=== PATIENT | female | born 1975 | race Caucasian/White ===

== ENCOUNTER → 2016-04-21 | Outpatient (CLI) | payer OTHER ==
--- NOTE | 2016-04-22 10:18 | MAM ---
EXAM DESCRIPTION: MAMMO BREAST SCREENING BILATERAL CAD, images were reviewed with CAD technology, R2 computer-aided detection. CLINICAL HISTORY: [facility]. COMPARISON: 2012. FINDINGS: Routine views are obtained. Scattered glandular pattern. No dominant mass, architectural distortion or clustered microcalcification. IMPRESSION: Benign exam. BIRAD CATEGORY: 2 BENIGN RECOMMENDATIONS: FOLLOW-UP: Routine screening mammogram in one year. According to the [employer], yearly mammograms are recommended starting at age 40 and continuing as long as a woman is in good health. Any breast change noted on a breast self-exam should be reported promptly to the patient's healthcare provider. Breast MRI is recommended for women with an approximately 20-25% or greater lifetime risk of breast cancer, including women with a strong family history of breast or ovarian cancer and women who have been treated for Hodgkin's disease. Electronically signed by: Key Chavira 04/22/2016 10:16
== END | disposition home or self-care (01) ==
LOC: MAMMO 14:50
PROVIDERS: ATTEND Family Medicine
DX: Z12.31 Encounter for screening mammogram for malignant neoplasm of breast (principal)

== ENCOUNTER → 2018-04-21 | Outpatient (CLI) | payer OTHER ==
--- NOTE | 2018-04-21 17:01 | US ---
US THYROID CLINICAL STATEMENT: E04.9. . Nonspecific thyroid goiter. No palpable mass. No history of prior thyroid surgery or therapy. COMPARISON: None FINDINGS: Size right thyroid lobe: 5.2 x 1.8 x 1.5 cm Size left thyroid lobe: 5.4 x 1.8 x 1.4 cm Size isthmus: 0.4 cm Estimated total number of nodules greater than or equal to 1 cm: None. No nodules or cysts in the thyroid lobes. Heterogeneous appearance. No abnormal vascularity or parenchymal edema. No distinct cyst or dominant solid mass in the surrounding soft tissues. No parenchymal edema or large calcifications. No overlying skin changes. Normal vascularity. IMPRESSION: 1. No nodules or cysts in the thyroid gland. 2. Surrounding soft tissues are unremarkable. *ACR TI-RADS 2017 Recommendations (for nodule follow-up): TR1: No FNA or follow up TR2: No FNA or follow up TR3: FNA if >/= 2.5 cm, follow up if 1.5 - 2.4 cm in 1, 3, and 5 years TR4: FNA if >/= 1.5 cm, follow up if 1.0 - 1.4 cm in 1, 2, 3, and 5 years TR5: FNA if >/= 1.0 cm, follow up if 0.5 - 0.9 cm every year for 5 years ACR TI-RADS recommends that no more than two nodules with the highest ACR TI-RADS total point should be biopsied and no more than four nodules should be followed. These recommendations do not apply to patients with increased risk for thyroid cancer or patients with symptomatic thyroid disease. Electronically signed by: Marquez Santana MD 04/21/2018 4:58 PM [facility] [employer]
== END ==
LOC: US 13:24
PROVIDERS: ATTEND Family Medicine
DX: E04.9 Nontoxic goiter, unspecified (principal)

== ENCOUNTER → 2018-11-12 | Outpatient (CLI) | payer OTHER | LOC: LAB.O 14:21 | PROVIDERS: ATTEND Nurse Practitioner Family | DX: F41.1 Generalized anxiety disorder (principal) ==

== ENCOUNTER → 2019-03-28 | Outpatient (CLI) | payer OTHER ==
--- NOTE | 2019-03-28 18:01 | MRI ---
EXAM DESCRIPTION: Lumbar Spine w/o Contrast CLINICAL HISTORY: LOW BACK PAIN COMPARISON: None Available. TECHNIQUE: MRI of the lumbar spine is performed according to our usual protocol with axial and sagittal multi sequence imaging. FINDINGS: Sagittal T2 images reveal decreased signal intensity consistent with desiccation of the intervertebral discs at levels L1-2, L4-5 and L5-S1. Posterior annular bulges are mildly prominent at these levels. No prevertebral mass or aneurysm. Lower cord and conus appear normal. Tip of the conus is behind L1. Sagittal T1 images reveal benign marrow signal characteristics. Scattered Schmorl's nodes. Few small vertebral hemangiomas. Normal T1 signal intensity and appearance of the lower cord and conus. Sagittal STIR images are positive for increased signal intensity around degenerative L5-S1 disc consistent with Modic type I changes. No paraspinous fluid collection or cystic lesion. Axial T1 and T2-weighted images were obtained to evaluate the disc levels. T12-L1: No posterior annular bulge or herniation. No spinal stenosis or neural foraminal narrowing. Moderate facet degenerative changes. Normal appearance of the lower cord and conus. L1-2: Mild diffuse posterior annular bulge without spinal stenosis or significant neural foraminal narrowing. Mild ligamentum flavum thickening with moderate narrowing of subarticular recesses. L2-3: No posterior annular bulge or herniation. No spinal stenosis. Mild bilateral neural foraminal narrowing with moderate narrowing of subarticular recess is crowding of the descending L3 nerve roots. Mild facet hypertrophic changes. L3-4: Mild diffuse posterior annular bulge with bilateral lateral accentuation. No spinal stenosis. Moderate bilateral neural foraminal narrowing. Facets appear hypertrophic with moderate narrowing of subarticular recess is crowding of the descending L4 nerve roots. L4-5: Moderate posterior annular bulge with right paracentral superimposed protrusion measuring 3 mm in AP dimension and 8 mm in mediolateral width. Moderate subarticular recess narrowing right more than left with impingement on the descending right L5 nerve root. Moderate facet degenerative changes are seen with [id number] bilateral neural foraminal narrowing. L5-S1: Mild diffuse posterior annular bulge with slight midline and right paracentral accentuation. Small posteriorly right parasagittal linear tear of the annulus measures 4 mm. There is moderately severe bilateral neural foraminal narrowing related to facet hypertrophy and bulging disc material. No significant subarticular recess or lateral recess compromise. Mild facet hypertrophy with ligamentum flavum thickening. Upper sacrum appears intact. No retroperitoneal mass or aneurysm. IMPRESSION: Moderate L4-5 posterior annular bulge with 3 mm superimposed right paracentral protrusion impinging upon the descending right L5 nerve root. Moderate to moderately severe neural foraminal narrowing at levels noted above. Milder posterior annular bulges at L1-2 and L5-S1. Electronically signed by: Santy Vazquez MD 03/28/2019 6:00 PM [facility]
== END ==
LOC: MRI 12:44
PROVIDERS: ATTEND Family Medicine
DX: M51.26 Other intervertebral disc displacement, lumbar region (principal); M51.86 Other intervertebral disc disorders, lumbar region; M51.87 Other intervertebral disc disorders, lumbosacral region; M48.062 Spinal stenosis, lumbar region with neurogenic claudication; M48.07 Spinal stenosis, lumbosacral region

== ENCOUNTER → 2019-10-03 | Outpatient (CLI) | payer OTHER ==
--- NOTE | 2019-10-04 15:55 | MAM ---
EXAM DESCRIPTION: 3D Screening BILATERAL : Digital Mammography. CLINICAL HISTORY: 43 years Female SCREENING . No complaints. Menarche age 13. Childbirth age 24. Menopause age 37. Using Biote HRT. Lifetime risk of developing breast cancer (Tyrer-Cuzick model)(%): 8.8. COMPARISON: 2-D digital screening bilateral mammography April 2016. TECHNIQUE: Bilateral CC and MLO projection full-field images, digital tomosynthesis mammographic technique. Bilateral digital 2-D full-field MLO images. CAD available for 2-D images. FINDINGS: The breast parenchymal density pattern is: Scattered areas of fibroglandular density. No skin thickening or nipple retraction. Left axillary lymph node. Left posterior lateral and anterior intramammary lymph nodes stable. No new focal, stellate mass or density, focal asymmetry , and no suspicious microcalcifications bilaterally. Stable mammograms compared to prior study. Taking into account, differences in mammographic technique. IMPRESSION: Benign exam. BIRAD CATEGORY: 2 BENIGN FINDINGS. RECOMMENDATIONS: FOLLOW UP: Routine digital bilateral mammographic screening, one year interval from August 2019. Written communication explaining the IMPRESSION and follow-up, will be mailed to the patient and referring health care provider. According to the [employer], yearly mammograms are recommended starting at age 40 and continuing as long as a woman is in good health. Any breast change noted on a breast self-exam should be reported promptly to the patient's healthcare provider. Breast MRI is recommended for women with an approximately 20-25% or greater lifetime risk of breast cancer, including women with a strong family history of breast or ovarian cancer and women who have been treated for Hodgkin's disease. A negative mammographic report should not delay tissue diagnosis in patients with significant clinical history or physical findings. Extremely dense breast tissue limits the sensitivity of digital mammography. Electronically signed by: Marquez Santana MD 10/04/2019 3:53 PM CDT
== END ==
LOC: MAMMO 08:28
PROVIDERS: ATTEND Nurse Practitioner Acute Care
DX: Z12.31 Encounter for screening mammogram for malignant neoplasm of breast (principal)